=== PATIENT | female | born 1940 | race Caucasian/White ===

== ENCOUNTER → 2017-12-04 | Outpatient (CLI) | payer OTHER, MEDICARE ==
[~2017-12-04] MED LIST: BLOOD PRESSURE; CHOLESTEROL; HYDROCODONE BIT1 T11 PO; NAPROSYN500 MG PO; THYROID
[2017-12-04 12:21] LABS: BASO % 0.5 % (0.0-1.0); EOS # 0.1 10*3/uL (0.0-0.4); HEMATOCRIT 39.4 % (37.0-47.0); HEMOGLOBIN 13.3 g/dl (12.0-16.0); LYMPH # 1.2 10*3/uL (1.3-4.4); LYMPH % 19.8 % (27.0-41.0); MEAN CELL VOLUME 88.5 fl (81.0-99.0); MEAN CORPUSCULAR HGB 29.9 pg (27.0-31.0); MEAN CORPUSCULAR HGB CONC 33.8 g/dl (33.0-37.0); MEAN PLATELET VOLUME 9.6 fl (9.6-12.3); MONO # 0.5 10*3/uL (0.1-1.0); MONO % 8.9 % (3.0-9.0); NEUT # 4.1 10*3/uL (2.3-7.9); NEUT % 68.6 % (47.0-73.0); PLATELET COUNT AUTOMATED 281 10*3/uL (130-400); RED BLOOD COUNT 4.45 10*6/uL (4.10-5.10); RED CELL DISTRI WIDTH 13.5 % (0-14.5)
[2017-12-04 12:51] LABS: ALBUMIN 3.6 gm/dl (3.1-4.5); BUN 19 mg/dl (7-24); CHLORIDE 105 mmol/L (98-107); CHOLESTEROL 232 mg/dL (<200); CREATININE 0.79 mg/dL (0.55-1.02); POTASSIUM 4.1 mmol/L (3.5-5.1); SGOT/AST 16 IU/L (3-35); SGPT/ALT 21 U/L (12-78); SODIUM 141 mmol/L (136-145); TOTAL PROTEIN 7.2 gm/dL (6.4-8.2); TRIGLYCERIDES 149 mg/dl (<150); VLDL CHOLESTEROL 30 mg/dL (6-40)
[2017-12-04 13:00] LABS: ALKALINE PHOSPHATASE 89 U/L (45-117); HDL CHOLESTEROL 52 mg/dl (40-60); LDL CHOLESTEROL 150 mg/dL (9-159)
[2017-12-04 13:13] LABS: FREE T4 0.96 ng/dl (0.76-1.46)
== END | disposition home or self-care (01) ==
LOC: LAB 11:30
PROVIDERS: Internal Medicine
DX: E03.9 Hypothyroidism, unspecified (principal); I10 Essential (primary) hypertension; E78.00 Pure hypercholesterolemia, unspecified; E55.9 Vitamin D deficiency, unspecified

== ENCOUNTER 2018-01-07 16:11 | Emergency (ER) | payer OTHER, MEDICARE ==
[~2018-01-07] VITALS: Ht 154.9 cm; Wt 67.6 kg
[2018-01-07 16:55] LABS: BASO % 0.6 % (0.0-1.0); EOS % 0.4 % (1.0-4.0); HEMATOCRIT 40.8 % (37.0-47.0); HEMOGLOBIN 13.7 g/dl (12.0-16.0); LYMPH # 1.2 10*3/uL (1.3-4.4); LYMPH % 17.8 % (27.0-41.0); MEAN CELL VOLUME 89.7 fl (81.0-99.0); MEAN CORPUSCULAR HGB 30.1 pg (27.0-31.0); MEAN CORPUSCULAR HGB CONC 33.6 g/dl (33.0-37.0); MEAN PLATELET VOLUME 9.4 fl (9.6-12.3); MONO # 0.7 10*3/uL (0.1-1.0); MONO % 10.5 % (3.0-9.0); NEUT # 4.8 10*3/uL (2.3-7.9); NEUT % 70.4 % (47.0-73.0); PLATELET COUNT AUTOMATED 263 10*3/uL (130-400); RED BLOOD COUNT 4.55 10*6/uL (4.10-5.10); RED CELL DISTRI WIDTH 13.9 % (0-14.5); WHITE BLOOD COUNT 6.9 10*3/uL (4.8-10.8)
[2018-01-07 17:13] LABS: ALBUMIN 3.9 gm/dl (3.1-4.5); ALKALINE PHOSPHATASE 89 U/L (45-117); BUN 34 mg/dl (7-24); CHLORIDE 103 mmol/L (98-107); CREATININE 0.85 mg/dL (0.55-1.02); POTASSIUM 3.4 mmol/L (3.5-5.1); SGOT/AST 16 IU/L (3-35); SGPT/ALT 22 U/L (12-78); SODIUM 139 mmol/L (136-145); TOTAL PROTEIN 7.6 gm/dL (6.4-8.2)
[2018-01-07 17:15] LABS: TROPONIN I < 0.015 ng/ml (<0.045)
[2018-01-07 18:10] LABS: ACT PARTIAL THROMBO TIME 23.8 SECONDS (20.8-31.5)
== END 2018-01-07 18:45 | disposition short-term general hospital (02) ==
LOC: ED 16:11
PROVIDERS: Nurse Practitioner Family
DX: I61.9 Nontraumatic intracerebral hemorrhage, unspecified (principal); Z88.6 Allergy status to analgesic agent; Z88.8 Allergy status to other drugs, medicaments and biological substances

== ENCOUNTER → 2018-03-28 | Outpatient (CLI) | payer OTHER, MEDICARE ==
--- NOTE | ~2018-03-28 | SLPIE ---
[place], [place] RESOURCE PROGRAM TEACHER INITIAL EVALUATION NAME: CRESENCIO ALLEN UNIT #: [id number] ROOM: DOCTOR: CARA QUEVEDO DO Speech Language Pathology Initial Evaluation Page 1 1 of Patient Name: CRESENCIO ALLEN Date: 03/28/2018 10:33 AM : 1940 SOC Date: 03/28/2018 [facility] Provider #: [id number] Treating Clinician: JORGE LUIS Whitlock-RESOURCE PROGRAM TEACHER Referring Physician: CARA QUEVEDO Patient Information Address: [address] [place] [address] Physician: CARA QUEVEDO Physician #: City, [facility], Zip: [place], [place] [address] Occupation: Unknown # of Approved Visits: 0 Gender: Female Labor Commissioner: FLORIAN ALLEN Medicare #: [id number] Rehabilitation Information / History Onset Date Code Description Primary Diagnosis: 03/28/2018 A0000 NO DIAGNOSIS SENT TO THE [facility] INTERFACE Subjective Comments: Initial evaluation created to initiate the electronic medical record. Please see [employer] for details. Rehabilitation Information / History Clinical Findings Functional Goals Functional Limitation Reporting Swallowing G8996 - Swallowing functional limitation, current status at therapy episode outset and at reporting intervals Current Status: CJ - At least 20 percent but less than 40 percent impaired, limited or restricted G8997 - Swallowing functional limitation, projected goal status, at therapy episode outset, at reporting intervals, and at discharge or to end reporting Goal Status: CJ - At least 20 percent but less than 40 percent impaired, limited or restricted G8998 - Swallowing functional limitation, discharge status, at discharge from therapy or to end reporting Discharge Status: CJ - At least 20 percent but less than 40 percent impaired, limited or restricted 03/28/2018 10:34:30 AM JORGE LUIS Whitlock-RESOURCE PROGRAM TEACHER Date/Time [place], [place] RESOURCE PROGRAM TEACHER INITIAL EVALUATION NAME: CRESENCIO ALLEN UNIT #: [id number] ROOM: DOCTOR: CARA QUEVEDO DO [facility] License #: [id number] CM:ART [id number] 103 [facility]
--- NOTE | ~2018-03-28 | SLPPN ---
[place], [place] FRESH FOODS TECHNICIAN PROGRESS NOTE NAME: CRESENCIO ALLEN UNIT #: [id number] ROOM: DOCTOR: CARA QUEVEDO DO Speech Language Pathology Treatment Note Page 1 1 of Patient Name: CRESENCIO ALLEN Date: 03/28/2018 10:40 AM : 1940 SOC Date: 03/28/2018 [facility] Provider #: [id number] Treating Clinician: JORGE LUIS Whitlock-FRESH FOODS TECHNICIAN Referring Physician: CARA QUEVEDO Onset Date Description Code Primary Diagnosis: 03/28/2018 A0000 NO DIAGNOSIS SENT TO THE [facility] INTERFACE Time In: 09:30 AM Time Out: 10:30 AM FRESH FOODS TECHNICIAN Interventions and CPT Codes Consisted of: CPT Code Modifiers Minutes Units MOTION FLUOROSCOPY/SWALLOW 37667 60 1 Total Minutes: 60 Total Timed Minutes: 0 Total Untimed Minutes: 60 Total Units: 1 Total Timed Units: 0 Total Untimed Units: 1 03/28/2018 10:41:55 AM ANTO Whitlock Date/Time State License #: [id number] CM:PERI 1041 1041 [facility]
--- NOTE | ~2018-03-28 | SLPPOC ---
"[place], [place] CONSULTING MANAGER PLAN OF CARE NAME: CRESENCIO ALLEN UNIT #: [id number] ROOM: DOCTOR: CARA QUEVEDO DO Speech Language Pathology Plan of Care Page 1 1 (Initial Evaluation) of Patient Name: CRESENCIO ALLEN Date: 03/28/2018 10:33 AM : 1940 SOC Date: 03/28/2018 [facility]: [facility] Provider #: [id number] Treating Clinician: JORGE LUIS Whitlock-CONSULTING MANAGER Referring Physician: CARA QUEVEDO Medicare #: [id number] Visits From SOC: Onset Date Description Code Primary Diagnosis: 03/28/2018 A0000 NO DIAGNOSIS SENT TO THE [facility] INTERFACE Subjective Comments: Initial evaluation created to initiate the electronic medical record. Please see [employer] for details. Initial Level Goals Functional Limitation Reporting Swallowing G8996 - Swallowing functional limitation, current status at therapy episode outset and at reporting intervals Current Status: CJ - At least 20 percent but less than 40 percent impaired, limited or restricted G8997 - Swallowing functional limitation, projected goal status, at therapy episode outset, at reporting intervals, and at discharge or to end reporting Goal Status: CJ - At least 20 percent but less than 40 percent impaired, limited or restricted G8998 - Swallowing functional limitation, discharge status, at discharge from therapy or to end reporting Discharge Status: CJ - At least 20 percent but less than 40 percent impaired, limited or restricted 03/28/2018 10:34:30 AM CARA QUEVEDO Date/Time JORGE LUIS Whitlock-CONSULTING MANAGER Date I certify the need for these services furnished under this plan of treatment while under my care. State License #: [id number] CM:SLPPOC 1036 1036 [facility]"
--- NOTE | ~2018-03-28 | PROC NOTE ---
[place], [place] PROCEDURE NOTE [id number] UNIT #: [id number] ROOM: DOCTOR: CONCEPCIONJULIANNE BIRTHDATE: [birth year] DOS: 03/28/2018 PROCEDURE PERFORMED: Modified barium swallow. ORDERING PHYSICIAN: Dr. Marilyn Staley RADIOLOGIST: Dr. Garcia. BACKGROUND INFORMATION: The patient is a 77-year-old female who was seen for modified barium swallow. This test was ordered to determine safety of swallow. The patient was alert throughout the examination and able to provide case history information. 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 She consumes mostly soft moist foods and thin liquids. She reported that at times she has difficulty getting foods down and has to rinse foods with a drink. For today's assessment, the patient was alert and able to follow commands. Respiratory status was within normal limits. Oral peripheral examination revealed presence of upper or lower denture with adequate fit reported. Lingual, labial, and buccal skills were within normal limits in terms of strength, range of motion, and coordination. Volitional swallow was delayed. Volitional cough was adequate. METHODS AND MATERIALS USED FOR THE EXAM: The patient was positioned in the lateral plane and the exam was viewed under fluoroscopy. The patient was presented with a variety of consistencies to assess swallowing skills including applesauce mixed with barium presented in half teaspoon amounts, barium-coated banana and cookie taken in bite size pieces and thin liquid barium taken by cup. ORAL PHASE: The patient achieved adequate labial seal around cup and spoon with no anterior loss. Bolus formation and transit were adequate. Mastication of solid consistencies was slow, but functional. Tongue to palate contact was within normal limits with all consistencies. Tongue retraction was within normal limits. Velar functioning was within normal limits with no nasal regurgitation. PHARYNGEAL PHASE: The pharyngeal swallow occurred within a timely manner. Following the swallow with soft solid, residue was observed in the pharynx. The patient was aware of the residue and when given a drink, she was able to clear this residue with liquid wash. During a couple presentations of the thin liquid consistency, transient upper airway penetration did occur due to reduced laryngeal elevation and epiglottic function. No aspiration occurred with any consistency during this exam. ESOPHAGEAL PHASE: This phase of the swallow was not formally assessed during this exam. IMPRESSIONS AND RECOMMENDATIONS: Based upon assessment results, this [place], [place] PROCEDURE NOTE NAME: CRESENCIO ALLEN UNIT #: [id number] ROOM: DOCTOR: UJLIANNE JAVIER BIRTHDATE: [birth year] 77-year-old patient presents with a mild oropharyngeal dysphagia. Residue in the pharynx occurred with solids, which cleared with liquid wash. Occasional transient upper airway penetration occurred with thin liquids. No aspiration occurred with any consistencies. Recommend the patient remain on present diet and use safe swallow precautions such as small bites and sips and alternating liquids and solids. Followup therapy is not warranted at this time. Results and recommendations were shared with the patient and she verbalized understanding. Thank you very much for this referral. Should you have any questions regarding this patient, please contact the speech pathologist at [phone]. JULIANNE JAVIER CM:PROCNOTE:PROCEDURE NOTE [id number] [id number] JULIANNE JAVIER
== END | disposition home or self-care (01) ==
LOC: RAD/SH 08:29
DX: I61.1 Nontraumatic intracerebral hemorrhage in hemisphere, cortical (principal)

== ENCOUNTER → 2018-06-21 | Outpatient (CLI) | payer OTHER | END | disposition home or self-care (01) | LOC: LAB 10:15 | DX: I51.7 Cardiomegaly (principal); E74.9 Disorder of carbohydrate metabolism, unspecified; R06.02 Shortness of breath; Z79.899 Other long term (current) drug therapy; Z87.891 Personal history of nicotine dependence ==

== ENCOUNTER → 2018-07-21 | Outpatient (CLI) | payer OTHER | END | disposition home or self-care (01) | LOC: CARD 13:39 | DX: I51.7 Cardiomegaly (principal) ==

== ENCOUNTER → 2018-09-16 | Outpatient (CLI) | payer OTHER ==
[2018-09-16 12:10] LABS: ALBUMIN 3.2 gm/dl (3.1-4.5); ALKALINE PHOSPHATASE 112 U/L (45-117); BUN 14 mg/dl (7-24); CHLORIDE 111 mmol/L (98-107); CHOLESTEROL 109 mg/dL (<200); CPK 107 U/L (26-192); CREATININE 0.63 mg/dL (0.55-1.02); HDL CHOLESTEROL 45 mg/dl (40-60); LDL CHOLESTEROL 47 mg/dL (9-159); POTASSIUM 4.2 mmol/L (3.5-5.1); SGOT/AST 11 IU/L (3-35); SGPT/ALT 22 U/L (12-78); SODIUM 145 mmol/L (136-145); TOTAL PROTEIN 6.6 gm/dL (6.4-8.2); TRIGLYCERIDES 84 mg/dl (<150); VLDL CHOLESTEROL 17 mg/dL (6-40)
[2018-09-16 12:15] LABS: FREE T4 1.36 ng/dl (0.76-1.46); THYROID STIM HORMONE (HS) 0.309 uIU/ml (0.358-4.75)
== END | disposition home or self-care (01) ==
LOC: LAB 11:18
PROVIDERS: Family Medicine
DX: E78.5 Hyperlipidemia, unspecified (principal); I61.8 Other nontraumatic intracerebral hemorrhage; I63.9 Cerebral infarction, unspecified; E78.00 Pure hypercholesterolemia, unspecified; I10 Essential (primary) hypertension; E03.9 Hypothyroidism, unspecified; M19.91 Primary osteoarthritis, unspecified site

== ENCOUNTER → 2019-02-27 | Outpatient (CLI) | payer OTHER ==
[2019-02-27 12:01] LABS: HEMATOCRIT 37.9 % (37.0-47.0); HEMOGLOBIN 12.4 g/dl (12.0-16.0); MEAN CORPUSCULAR HGB 29.5 pg (27.0-31.0); MEAN CORPUSCULAR HGB CONC 32.7 g/dl (33.0-37.0); MEAN PLATELET VOLUME 9.6 fl (9.6-12.3); RED BLOOD COUNT 4.21 10*6/uL (4.10-5.10); WHITE BLOOD COUNT 5.2 10*3/uL (4.8-10.8)
[2019-02-27 12:34] LABS: ALBUMIN 3.4 gm/dl (3.1-4.5); ALKALINE PHOSPHATASE 115 U/L (45-117); BUN 13 mg/dl (7-24); CHLORIDE 110 mmol/L (98-107); CHOLESTEROL 181 mg/dL (<200); CREATININE 0.72 mg/dL (0.55-1.02); FREE T4 1.32 ng/dl (0.76-1.46); HDL CHOLESTEROL 45 mg/dl (40-60); LDL CHOLESTEROL 107 mg/dL (9-159); POTASSIUM 3.8 mmol/L (3.5-5.1); SGOT/AST 8 IU/L (3-35); SGPT/ALT 16 U/L (12-78); SODIUM 145 mmol/L (136-145); TOTAL PROTEIN 6.6 gm/dL (6.4-8.2); TRIGLYCERIDES 143 mg/dl (<150); VLDL CHOLESTEROL 29 mg/dL (6-40)
[2019-02-27 12:42] LABS: THYROID STIM HORMONE (HS) 0.499 uIU/ml (0.358-4.75)
== END | disposition home or self-care (01) ==
LOC: LAB 11:16
PROVIDERS: Family Medicine
DX: E78.00 Pure hypercholesterolemia, unspecified (principal); E03.9 Hypothyroidism, unspecified; I10 Essential (primary) hypertension; M19.90 Unspecified osteoarthritis, unspecified site; E55.9 Vitamin D deficiency, unspecified

== ENCOUNTER → 2019-06-05 | Outpatient (CLI) | payer OTHER ==
[2019-06-05 11:17] LABS: HEMATOCRIT 37.2 % (37.0-47.0); HEMOGLOBIN 12.2 g/dl (12.0-16.0); MEAN CELL VOLUME 91.4 fl (81.0-99.0); MEAN CORPUSCULAR HGB CONC 32.8 g/dl (33.0-37.0); MEAN PLATELET VOLUME 9.2 fl (9.6-12.3); RED BLOOD COUNT 4.07 10*6/uL (4.10-5.10); RED CELL DISTRI WIDTH 13.7 % (0-14.5); WHITE BLOOD COUNT 6.1 10*3/uL (4.8-10.8)
[2019-06-05 11:45] LABS: ALBUMIN 3.3 gm/dl (3.1-4.5); BUN 15 mg/dl (7-24); CHLORIDE 112 mmol/L (98-107); CHOLESTEROL 132 mg/dL (<200); POTASSIUM 4.2 mmol/L (3.5-5.1); SGOT/AST 11 IU/L (3-35); SGPT/ALT 18 U/L (12-78); SODIUM 143 mmol/L (136-145); TRIGLYCERIDES 161 mg/dl (<150); VLDL CHOLESTEROL 32 mg/dL (6-40)
[2019-06-05 11:46] LABS: ALKALINE PHOSPHATASE 108 U/L (45-117); CPK 72 U/L (26-192); HDL CHOLESTEROL 40 mg/dl (40-60); LDL CHOLESTEROL 60 mg/dL (9-159); TOTAL PROTEIN 6.5 gm/dL (6.4-8.2)
== END | disposition home or self-care (01) ==
LOC: LAB 10:55
PROVIDERS: Family Medicine
DX: I10 Essential (primary) hypertension (principal); F41.1 Generalized anxiety disorder; E78.00 Pure hypercholesterolemia, unspecified; E74.9 Disorder of carbohydrate metabolism, unspecified; R73.09 Other abnormal glucose

== ENCOUNTER → 2019-09-09 | Outpatient (CLI) | payer OTHER ==
[2019-09-09 10:36] LABS: ALBUMIN 3.3 gm/dl (3.1-4.5); ALKALINE PHOSPHATASE 109 U/L (45-117); BUN 14 mg/dl (7-24); CHLORIDE 111 mmol/L (98-107); CHOLESTEROL 177 mg/dL (<200); CPK 69 U/L (26-192); CREATININE 0.77 mg/dL (0.55-1.02); HDL CHOLESTEROL 38 mg/dl (40-60); LDL CHOLESTEROL 103 mg/dL (9-159); SGOT/AST 12 IU/L (3-35); SGPT/ALT 21 U/L (12-78); SODIUM 143 mmol/L (136-145); TOTAL PROTEIN 6.6 gm/dL (6.4-8.2); TRIGLYCERIDES 179 mg/dl (<150); VLDL CHOLESTEROL 36 mg/dL (6-40)
== END | disposition home or self-care (01) ==
LOC: LAB 09:46
PROVIDERS: Family Medicine
DX: E78.00 Pure hypercholesterolemia, unspecified (principal)

== ENCOUNTER → 2019-12-23 | Outpatient (CLI) | payer OTHER ==
[2019-12-23 10:48] LABS: HEMATOCRIT 39.6 % (37.0-47.0); HEMOGLOBIN 12.9 g/dl (12.0-16.0); MEAN CELL VOLUME 89.6 fl (81.0-99.0); MEAN CORPUSCULAR HGB 29.2 pg (27.0-31.0); MEAN CORPUSCULAR HGB CONC 32.6 g/dl (33.0-37.0); MEAN PLATELET VOLUME 9.6 fl (9.6-12.3); RED BLOOD COUNT 4.42 10*6/uL (4.10-5.10); RED CELL DISTRI WIDTH 13.7 % (0-14.5); WHITE BLOOD COUNT 10.7 10*3/uL (4.8-10.8)
[2019-12-23 11:05] LABS: ALBUMIN 3.5 gm/dl (3.1-4.5); ALKALINE PHOSPHATASE 127 U/L (45-117); BUN 11 mg/dl (7-24); CHLORIDE 108 mmol/L (98-107); CHOLESTEROL 146 mg/dL (<200); CREATININE 0.82 mg/dL (0.55-1.02); HDL CHOLESTEROL 42 mg/dl (40-60); LDL CHOLESTEROL 75 mg/dL (9-159); POTASSIUM 4.1 mmol/L (3.5-5.1); SGOT/AST 11 IU/L (3-35); SGPT/ALT 25 U/L (12-78); SODIUM 140 mmol/L (136-145); TRIGLYCERIDES 145 mg/dl (<150); VLDL CHOLESTEROL 29 mg/dL (6-40)
[2019-12-23 11:07] LABS: CPK 80 U/L (26-192)
== END | disposition home or self-care (01) ==
LOC: LAB 10:23
PROVIDERS: Family Medicine
DX: I10 Essential (primary) hypertension (principal); E78.00 Pure hypercholesterolemia, unspecified; E55.9 Vitamin D deficiency, unspecified

== ENCOUNTER → 2020-03-27 | Outpatient (CLI) | payer OTHER ==
[2020-03-27 13:16] LABS: ALBUMIN 3.3 gm/dl (3.1-4.5); ALKALINE PHOSPHATASE 104 U/L (45-117); BUN 13 mg/dl (7-24); CHLORIDE 114 mmol/L (98-107); CHOLESTEROL 171 mg/dL (<200); CPK 70 U/L (26-192); CREATININE 0.88 mg/dL (0.55-1.02); FREE T4 1.34 ng/dl (0.76-1.46); HDL CHOLESTEROL 39 mg/dl (40-60); LDL CHOLESTEROL 91 mg/dL (9-159); POTASSIUM 4.2 mmol/L (3.5-5.1); SGOT/AST 17 IU/L (3-35); SGPT/ALT 31 U/L (12-78); SODIUM 142 mmol/L (136-145); TOTAL PROTEIN 7.1 gm/dL (6.4-8.2); TRIGLYCERIDES 204 mg/dl (<150); VLDL CHOLESTEROL 41 mg/dL (6-40)
[2020-03-27 13:22] LABS: THYROID STIM HORMONE (HS) 0.244 uIU/ml (0.358-4.75)
== END | disposition home or self-care (01) ==
LOC: LAB 12:10
PROVIDERS: Family Medicine
DX: I10 Essential (primary) hypertension (principal); E03.9 Hypothyroidism, unspecified; E55.9 Vitamin D deficiency, unspecified; E78.00 Pure hypercholesterolemia, unspecified

== ENCOUNTER → 2020-07-16 | Outpatient (CLI) | payer OTHER ==
[2020-07-16 10:19] LABS: MEAN CELL VOLUME 90.1 fl (81.0-99.0); MEAN CORPUSCULAR HGB 28.3 pg (27.0-31.0); MEAN CORPUSCULAR HGB CONC 31.4 g/dl (33.0-37.0); MEAN PLATELET VOLUME 9.8 fl (9.6-12.3); RED BLOOD COUNT 4.66 10*6/uL (4.10-5.10); RED CELL DISTRI WIDTH 14.6 % (0-14.5); WHITE BLOOD COUNT 5.6 10*3/uL (4.8-10.8)
[2020-07-16 10:49] LABS: ALBUMIN 3.5 gm/dl (3.1-4.5); BUN 16 mg/dl (7-24); CHLORIDE 112 mmol/L (98-107); CHOLESTEROL 192 mg/dL (<200); CREATININE 0.75 mg/dL (0.55-1.02); POTASSIUM 4.1 mmol/L (3.5-5.1); SGOT/AST 17 IU/L (3-35); SGPT/ALT 26 U/L (12-78); SODIUM 143 mmol/L (136-145); TRIGLYCERIDES 141 mg/dl (<150); VLDL CHOLESTEROL 28 mg/dL (6-40)
[2020-07-16 10:55] LABS: ALKALINE PHOSPHATASE 96 U/L (45-117); FREE T4 1.13 ng/dl (0.76-1.46); HDL CHOLESTEROL 42 mg/dl (40-60); LDL CHOLESTEROL 122 mg/dL (9-159); THYROID STIM HORMONE (HS) 0.799 uIU/ml (0.358-4.75)
[2020-07-16 11:19] LABS: VITAMIN D, 25-HYDROXY 18.4 ng/mL (30-100)
== END | disposition home or self-care (01) ==
LOC: LAB 09:33
PROVIDERS: ATTEND Family Medicine
DX: E03.9 Hypothyroidism, unspecified (principal); E55.9 Vitamin D deficiency, unspecified; I10 Essential (primary) hypertension; E78.00 Pure hypercholesterolemia, unspecified

== ENCOUNTER → 2020-10-26 | Outpatient (CLI) | payer MEDICARE ==
[2020-10-26 11:06] LABS: HEMATOCRIT 44.1 % (37.0-47.0); MEAN CELL VOLUME 89.3 fl (81.0-99.0); MEAN CORPUSCULAR HGB 27.9 pg (27.0-31.0); MEAN CORPUSCULAR HGB CONC 31.3 g/dl (33.0-37.0); MEAN PLATELET VOLUME 9.4 fl (9.6-12.3); RED BLOOD COUNT 4.94 10*6/uL (4.10-5.10); WHITE BLOOD COUNT 5.9 10*3/uL (4.8-10.8)
[2020-10-26 11:37] LABS: ALBUMIN 3.4 gm/dl (3.1-4.5); ALKALINE PHOSPHATASE 99 U/L (45-117); BUN 15 mg/dl (7-24); CHLORIDE 108 mmol/L (98-107); CHOLESTEROL 237 mg/dL (<200); CPK 121 U/L (26-192); CREATININE 0.94 mg/dL (0.55-1.02); HDL CHOLESTEROL 42 mg/dl (40-60); LDL CHOLESTEROL 155 mg/dL (9-159); POTASSIUM 4.7 mmol/L (3.5-5.1); SGOT/AST 15 IU/L (3-35); SGPT/ALT 30 U/L (12-78); SODIUM 142 mmol/L (136-145); TOTAL PROTEIN 7.1 gm/dL (6.4-8.2); TRIGLYCERIDES 201 mg/dl (<150); VLDL CHOLESTEROL 40 mg/dL (6-40)
== END | disposition home or self-care (01) ==
LOC: LAB 10:46
PROVIDERS: ATTEND Family Medicine
DX: I10 Essential (primary) hypertension (principal); E03.9 Hypothyroidism, unspecified; E55.9 Vitamin D deficiency, unspecified; E78.00 Pure hypercholesterolemia, unspecified

== ENCOUNTER → 2021-01-31 | Outpatient (CLI) | payer MEDICARE ==
[2021-01-31 11:37] LABS: ALBUMIN 3.5 gm/dl (3.1-4.5); ALKALINE PHOSPHATASE 95 U/L (45-117); BUN 15 mg/dl (7-24); CHLORIDE 108 mmol/L (98-107); CHOLESTEROL 258 mg/dL (<200); CPK 93 U/L (26-192); CREATININE 0.86 mg/dL (0.55-1.02); HDL CHOLESTEROL 44 mg/dl (40-60); LDL CHOLESTEROL 172 mg/dL (9-159); POTASSIUM 4.1 mmol/L (3.5-5.1); SGOT/AST 24 IU/L (3-35); SGPT/ALT 30 U/L (12-78); SODIUM 140 mmol/L (136-145); TOTAL PROTEIN 7.3 gm/dL (6.4-8.2); TRIGLYCERIDES 211 mg/dl (<150); VLDL CHOLESTEROL 42 mg/dL (6-40)
== END | disposition home or self-care (01) ==
LOC: LAB 10:40
PROVIDERS: ATTEND Family Medicine
DX: I10 Essential (primary) hypertension (principal); E78.00 Pure hypercholesterolemia, unspecified

== ENCOUNTER → 2021-03-21 | Outpatient (CLI) | payer MEDICARE ==
[2021-03-21 10:03] LABS: ALBUMIN 3.4 gm/dl (3.1-4.5); BUN 16 mg/dl (7-24); CHLORIDE 107 mmol/L (98-107); POTASSIUM 4.2 mmol/L (3.5-5.1); SODIUM 140 mmol/L (136-145)
[2021-03-21 10:06] LABS: ALKALINE PHOSPHATASE 93 U/L (45-117); CHOLESTEROL 180 mg/dL (<200); CPK 87 U/L (26-192); CREATININE 0.86 mg/dL (0.55-1.02); LDL CHOLESTEROL 94 mg/dL (9-159); SGOT/AST 16 IU/L (3-35); SGPT/ALT 20 U/L (12-78); TRIGLYCERIDES 234 mg/dl (<150)
== END | disposition home or self-care (01) ==
LOC: LAB 08:43
PROVIDERS: ATTEND Family Medicine
DX: E78.00 Pure hypercholesterolemia, unspecified (principal)

== ENCOUNTER → 2021-04-13 | Outpatient (CLI) | payer MEDICARE | END | disposition home or self-care (01) | LOC: LAB 10:26 | PROVIDERS: ATTEND Family Medicine | DX: E74.9 Disorder of carbohydrate metabolism, unspecified (principal); Z79.899 Other long term (current) drug therapy ==

== ENCOUNTER → 2021-07-05 | Outpatient (CLI) | payer MEDICARE ==
[2021-07-05 11:19] LABS: HEMATOCRIT 41.4 % (37.0-47.0); MEAN CELL VOLUME 88.3 fl (81.0-99.0); MEAN CORPUSCULAR HGB 27.9 pg (27.0-31.0); MEAN CORPUSCULAR HGB CONC 31.6 g/dl (33.0-37.0); MEAN PLATELET VOLUME 9.2 fl (9.6-12.3); RED BLOOD COUNT 4.69 10*6/uL (4.10-5.10); RED CELL DISTRI WIDTH 14.5 % (0-14.5)
[2021-07-05 11:37] LABS: ALBUMIN 3.1 gm/dl (3.1-4.5); BUN 14 mg/dl (7-24); CHLORIDE 107 mmol/L (98-107); CHOLESTEROL 246 mg/dL (<200); CREATININE 0.82 mg/dL (0.55-1.02); POTASSIUM 4.1 mmol/L (3.5-5.1); SGOT/AST 11 IU/L (3-35); SGPT/ALT 16 U/L (12-78); SODIUM 142 mmol/L (136-145); TOTAL PROTEIN 6.9 gm/dL (6.4-8.2); TRIGLYCERIDES 179 mg/dl (<150)
[2021-07-05 11:44] LABS: ALKALINE PHOSPHATASE 103 U/L (45-117); FREE T4 1.16 ng/dl (0.76-1.46); LDL CHOLESTEROL 174 mg/dL (9-159); THYROID STIM HORMONE (HS) 0.377 uIU/ml (0.358-4.75)
== END | disposition home or self-care (01) ==
LOC: LAB 10:28
PROVIDERS: ATTEND Family Medicine
DX: I10 Essential (primary) hypertension (principal); E78.00 Pure hypercholesterolemia, unspecified; E03.9 Hypothyroidism, unspecified

== ENCOUNTER → 2021-08-16 | Outpatient (CLI) | payer MEDICARE ==
[2021-08-16 12:14] LABS: ALKALINE PHOSPHATASE 87 U/L (45-117); BUN 16 mg/dl (7-24); CHLORIDE 107 mmol/L (98-107); CHOLESTEROL 145 mg/dL (<200); CPK 75 U/L (26-192); CREATININE 0.78 mg/dL (0.55-1.02); LDL CHOLESTEROL 77 mg/dL (9-159); POTASSIUM 4.2 mmol/L (3.5-5.1); SGOT/AST 10 IU/L (3-35); SGPT/ALT 17 U/L (12-78); SODIUM 137 mmol/L (136-145); TOTAL PROTEIN 6.9 gm/dL (6.4-8.2); TRIGLYCERIDES 118 mg/dl (<150)
== END | disposition home or self-care (01) ==
LOC: LAB 11:28
PROVIDERS: ATTEND Family Medicine
DX: E78.00 Pure hypercholesterolemia, unspecified (principal)

== ENCOUNTER → 2021-11-18 | Outpatient (CLI) | payer MEDICARE ==
[2021-11-18 10:54] LABS: MEAN CELL VOLUME 87.7 fl (81.0-99.0); MEAN CORPUSCULAR HGB 27.9 pg (27.0-31.0); MEAN CORPUSCULAR HGB CONC 31.8 g/dl (33.0-37.0); MEAN PLATELET VOLUME 9.3 fl (9.6-12.3); RED BLOOD COUNT 4.56 10*6/uL (4.10-5.10); RED CELL DISTRI WIDTH 13.9 % (0-14.5); WHITE BLOOD COUNT 5.6 10*3/uL (4.8-10.8)
[2021-11-18 11:11] LABS: BUN 15 mg/dl (7-24); CHLORIDE 108 mmol/L (98-107); CHOLESTEROL 125 mg/dL (<200); CREATININE 0.84 mg/dL (0.55-1.02); SGOT/AST 10 IU/L (3-35); SGPT/ALT 13 U/L (12-78); SODIUM 141 mmol/L (136-145); TOTAL PROTEIN 6.8 gm/dL (6.4-8.2); TRIGLYCERIDES 136 mg/dl (<150)
[2021-11-18 11:16] LABS: ALKALINE PHOSPHATASE 87 U/L (45-117); CPK 57 U/L (26-192); FREE T4 1.19 ng/dl (0.76-1.46); LDL CHOLESTEROL 63 mg/dL (9-159)
== END | disposition home or self-care (01) ==
LOC: LAB 10:14
PROVIDERS: ATTEND Family Medicine
DX: I10 Essential (primary) hypertension (principal); E78.00 Pure hypercholesterolemia, unspecified; E03.9 Hypothyroidism, unspecified

== ENCOUNTER → 2022-02-19 | Outpatient (CLI) | payer MEDICARE ==
[2022-02-19 13:01] LABS: BUN 14 mg/dl (7-24); CHLORIDE 110 mmol/L (98-107); POTASSIUM 4.7 mmol/L (3.5-5.1); SODIUM 143 mmol/L (136-145)
[2022-02-19 13:10] LABS: ALKALINE PHOSPHATASE 96 U/L (45-117); CHOLESTEROL 166 mg/dL (<200); CPK 113 U/L (26-192); CREATININE 0.83 mg/dL (0.55-1.02); FREE T4 1.28 ng/dl (0.76-1.46); LDL CHOLESTEROL 91 mg/dL (9-159); SGOT/AST 18 IU/L (3-35); SGPT/ALT 21 U/L (12-78); THYROID STIM HORMONE (HS) 0.399 uIU/ml (0.358-4.75); TOTAL PROTEIN 7.1 gm/dL (6.4-8.2); TRIGLYCERIDES 172 mg/dl (<150)
== END | disposition home or self-care (01) ==
LOC: LAB 12:09
PROVIDERS: ATTEND Family Medicine
DX: I10 Essential (primary) hypertension (principal); E78.00 Pure hypercholesterolemia, unspecified; E03.9 Hypothyroidism, unspecified

== ENCOUNTER → 2022-07-28 | Outpatient (CLI) | payer MEDICARE ==
[2022-07-28 11:03] LABS: HEMATOCRIT 40.7 % (37.0-47.0); MEAN CELL VOLUME 90.6 fl (81.0-99.0); MEAN CORPUSCULAR HGB 29.6 pg (27.0-31.0); MEAN CORPUSCULAR HGB CONC 32.7 g/dl (33.0-37.0); MEAN PLATELET VOLUME 9.4 fl (9.6-12.3); RED BLOOD COUNT 4.49 10*6/uL (4.10-5.10); RED CELL DISTRI WIDTH 14.4 % (0-14.5); WHITE BLOOD COUNT 6.1 10*3/uL (4.8-10.8)
[2022-07-28 11:33] LABS: BUN 17 mg/dl (7-24); CHLORIDE 110 mmol/L (98-107); POTASSIUM 4.2 mmol/L (3.5-5.1); SODIUM 142 mmol/L (136-145)
[2022-07-28 11:40] LABS: ALKALINE PHOSPHATASE 73 U/L (45-117); CHOLESTEROL 154 mg/dL (<200); CPK 96 U/L (26-192); CREATININE 0.82 mg/dL (0.55-1.02); FREE T4 1.43 ng/dl (0.76-1.46); LDL CHOLESTEROL 80 mg/dL (9-159); SGOT/AST 18 IU/L (3-35); SGPT/ALT 22 U/L (12-78); THYROID STIM HORMONE (HS) 0.111 uIU/ml (0.358-4.75); TOTAL PROTEIN 6.9 gm/dL (6.4-8.2); TRIGLYCERIDES 177 mg/dl (<150)
[2022-07-28 11:44] LABS: VALPROIC ACID (DEPAKENE) < 3.0 ug/ml (50-100)
[2022-07-28 11:57] LABS: VITAMIN D, 25-HYDROXY 46.7 ng/mL (30-100)
== END | disposition home or self-care (01) ==
LOC: LAB 10:33
PROVIDERS: ATTEND Family Medicine
DX: I10 Essential (primary) hypertension (principal); E78.00 Pure hypercholesterolemia, unspecified; E03.9 Hypothyroidism, unspecified; E55.9 Vitamin D deficiency, unspecified

== ENCOUNTER → 2023-12-31 | Outpatient (CLI) | payer MEDICARE | END | disposition home or self-care (01) | LOC: US 12:59 | PROVIDERS: ATTEND Family Medicine | DX: I73.9 Peripheral vascular disease, unspecified (principal); I10 Essential (primary) hypertension; L60.8 Other nail disorders ==

== ENCOUNTER → 2024-01-31 | Outpatient (CLI) | payer MEDICARE | END | disposition home or self-care (01) | LOC: CARD 08:18 | PROVIDERS: ATTEND Internal Medicine Cardiovascular Disease | DX: I73.9 Peripheral vascular disease, unspecified (principal); R60.0 Localized edema ==

== ENCOUNTER 2024-02-10 12:30 | Emergency (ER) | payer MEDICARE ==
[~2024-02-10] VITALS: Wt 65.8 kg
[2024-02-10] MEDS ORDERED: hydrALAZINE hydrochloride 20 MG/ML VIAL IV ONE ×2 (13:35→15:20)
[2024-02-10 13:49] LABS: BASO # 0.1 10*3/uL (0.0-0.1); BASO % 0.7 % (0.0-1.0); EOS # 0.1 10*3/uL (0.0-0.4); EOS % 1.3 % (1.0-4.0); HEMATOCRIT 43.7 % (37.0-47.0); LYMPH % 13.8 % (27.0-41.0); MEAN CELL VOLUME 90.1 fl (81.0-99.0); MEAN CORPUSCULAR HGB 28.9 pg (27.0-31.0); MONO # 0.7 10*3/uL (0.1-1.0); MONO % 8.7 % (3.0-9.0); NEUT # 5.7 10*3/uL (2.3-7.9); NEUT % 75.2 % (47.0-73.0); PLATELET COUNT AUTOMATED 258 10*3/uL (130-400); RED BLOOD COUNT 4.85 10*6/uL (4.10-5.10); RED CELL DISTRI WIDTH 13.7 % (0-14.5); WHITE BLOOD COUNT 7.6 10*3/uL (4.8-10.8)
[2024-02-10 14:08] LABS: ALKALINE PHOSPHATASE 86 U/L (46-116); BUN 13 mg/dl (9-23); CHLORIDE 103 mmol/L (98-107); SGPT/ALT 14 U/L (5-49); TOTAL PROTEIN 6.9 gm/dL (6.0-8.0)
[2024-02-10] MEDS ORDERED: AMLODIPINE BESYL5 MG PO (16:41)
== END 2024-02-10 16:53 | disposition home or self-care (01) ==
LOC: ED 12:30
PROVIDERS: Internal Medicine
DX: I16.0 Hypertensive urgency (principal); R42 Dizziness and giddiness; Z88.5 Allergy status to narcotic agent; Z88.8 Allergy status to other drugs, medicaments and biological substances; Z90.710 Acquired absence of both cervix and uterus; Z98.890 Other specified postprocedural states; W19.XXXA Unspecified fall, initial encounter

== ENCOUNTER → 2024-09-12 | Outpatient (CLI) | payer MEDICARE ==
[~2024-09-12] MED LIST changes: +AMLODIPINE BESYL5 MG PO
== END | disposition home or self-care (01) ==
LOC: LAB 09:44
PROVIDERS: ATTEND Family Medicine
DX: E83.52 Hypercalcemia (principal)